=== PATIENT | female | born 1970 | race American Indian/Alaskan Native ===

== ENCOUNTER 2021-10-01 21:53 | Emergency (ER) | payer MEDICAID, OTHER ==
[2021-10-01 22:12] VITALS: BP 141/77; PULSE 103
[2021-10-01] MEDS ORDERED: Famotidine 20 MG/2 ML SDV IVPUSH ONE (22:18)
[2021-10-01] MEDS ORDERED: diphenhydrAMINE 50 MG/ML SDV IVPUSH ONE (22:18)
[2021-10-01] MEDS ORDERED: methylPREDNISolone Sodium Succinate 125 MG/2 ML SDV IVPUSH ONE (22:18)
[2021-10-01] MEDS ORDERED: Sodium Chloride 0.9% 10 ML Syringe FLUSH PRN (22:18)
[2021-10-01] MEDS ORDERED: Sodium Chloride 0.9% 1,000 ML IV ONE (22:19)
== END 2021-10-01 23:39 | disposition home or self-care (01) ==
LOC: DL.ED 21:53
DX: T78.40XA Allergy, unspecified, initial encounter (principal); K21.9 Gastro-esophageal reflux disease without esophagitis; I10 Essential (primary) hypertension; Z79.899 Other long term (current) drug therapy; Z90.710 Acquired absence of both cervix and uterus
CPT/HCPCS: 96361; 96374; 96375; 99283; J1200; J2930; J3490; J7030

== ENCOUNTER 2022-12-07 12:00 | Inpatient (IN) | payer MEDICAID ==
[2022-12-07] MEDS ORDERED: Lidocaine 2% with EPINEPHrine 1:200,000 20 ML SDV INJECT ONE (12:12)
[2022-12-07] MEDS ORDERED: HYDROmorphone 1 MG/ML Syringe IVPUSH ONE ×2 (12:20→14:28)
[2022-12-07] MEDS ORDERED: Ondansetron 4 MG/2 ML SDV IVPUSH ONE (12:20)
[2022-12-07 12:23] LABS: BASOPHILS PERCENT AUTO 0.4 % (0.0-1.0); EOSINOPHILS PERCENT AUTO 1.6 % (1.0-3.0); HEMATOCRIT 45.1 % (37.0-47.0); HEMOGLOBIN 15.4 g/dL (12.0-16.0); LYMPHOCYTES PERCENT AUTO 9.7 % (20.5-50.1); MEAN CORPUSCULAR HEMOGLOBIN 30.7 pg (27.0-34.0); MEAN CORPUSCULAR HGB CONC 34.1 g/dL (33.0-35.0); MEAN CORPUSCULAR VOLUME 89.8 fL (80-100); NEUTROPHILS PERCENT AUTO 82.3 % (42.2-75.2); PLATELET COUNT,PLT 380 10^3/uL (150-450); RED BLOOD CELL COUNT 5.02 10^6/uL (4.2-5.4); WHITE BLOOD CELL COUNT,WBC 19.6 10^3/uL (5.0-10.0)
[2022-12-07 12:35] LABS: HCG QUALITATIVE,SERUM NEGATIVE (NEGATIVE)
[2022-12-07 12:40] LABS: LACTIC ACID 0.8 mmol/L (0.4-2.0)
[2022-12-07 12:46] LABS: A/G RATIO 0.8; ALANINE AMINOTRANSFERASE,ALT 23 U/L (14-59); ALBUMIN 4.1 g/dL (3.4-5.0); ALKALINE PHOSPHATASE 114 U/L (46-116); ANION GAP 14.8 mEq/L (7-13); ASPARTATE AMNIOTRANSFERASE,AST 12 U/L (15-37); BILIRUBIN TOTAL 0.7 mg/dL (0.2-1.0); BLOOD UREA NITROGEN,BUN 11 mg/dL (7-18); BUN/CREATININE RATIO 11.8 (No establ ref range); C-REACTIVE PROTEIN 11.31 ng/dL (<=0.30); CALCIUM 9.4 mg/dL (8.5-10.1); CARBON DIOXIDE,CO2 27 mmol/L (21-32); CHLORIDE,CL 100 mmol/L (98-107); CREATININE 0.93 mg/dL (0.55-1.02); EST CRCL DRUG DOSING (CG) 69.59 mL/min; ESTIMATED GFR 74 mL/min (>=60); GLUCOSE RANDOM 118 mg/dL (70-99); POTASSIUM,K 3.8 mmol/L (3.5-5.1); PROTEIN TOTAL,TP 9.2 g/dL (6.4-8.2); SODIUM,NA 138 mmol/L (136-145)
[2022-12-07] MEDS ORDERED: Vancomycin 2 GM in Sodium Chloride 0.9% 500 ML IV ONE (12:54)
[2022-12-07] MEDS ORDERED: diphenhydrAMINE 50 MG/ML SDV IVPUSH ONE (14:45)
[2022-12-07] MEDS ORDERED: Zolpidem 5 MG Tab PO PRN (15:15)
[2022-12-07] MEDS ORDERED: Albuterol/Ipratropium 3.0-0.5 MG/3 ML Neb Soln NEB PRN (15:15)
[2022-12-07] MEDS ORDERED: Ibuprofen 600 MG Tab PO PRN (15:15)
[2022-12-07] MEDS ORDERED: 50% Dextrose in Water 50 ML Syringe IVPUSH PRN (15:24)
[2022-12-07] MEDS ORDERED: Glucagon,Human Recombinant 1 MG Vial IM PRN (15:24)
[2022-12-07] MEDS: Insulin Lispro 100 Units/ML 3 ML Vial SUBCUT SCH (17:09)
[2022-12-07] MEDS ORDERED: Formoterol/Mometasone 200-5 MCG 8.8 GM Inhaler IH SCH (21:00)
[2022-12-07] MEDS: oxyCODONE ER 10 MG TAB.ER PO SCH (21:11)
[2022-12-07] MEDS: Saccharomyces Boulardii (Probiotic) 250 MG Cap PO SCH (21:12)
[2022-12-07] MEDS: Ondansetron 4 MG/2 ML SDV IVPUSH PRN (21:24)
[2022-12-08] MEDS: Sodium Chloride 0.9% 10 ML Syringe FLUSH PRN ×2 (01:21→03:55)
[2022-12-08] MEDS: HYDROmorphone 0.5 MG/0.5 ML Syringe IVPUSH PRN (01:44)
[2022-12-08] MEDS: Ondansetron 4 MG/2 ML SDV IVPUSH PRN (03:55)
[2022-12-08] MEDS: Acetaminophen/HYDROcodone 325-10 MG Tab PO PRN (04:08)
[2022-12-08 06:54] LABS: ALBUMIN 3.2 g/dL (3.4-5.0); BILIRUBIN TOTAL 0.6 mg/dL (0.2-1.0); BUN/CREATININE RATIO 13.2 (No establ ref range); C-REACTIVE PROTEIN 12.61 ng/dL (<=0.30); CALCIUM 8.7 mg/dL (8.5-10.1); CREATININE 0.91 mg/dL (0.55-1.02); EST CRCL DRUG DOSING (CG) 72.45 mL/min; MAGNESIUM 1.9 mg/dL (1.8-2.4); PROTEIN TOTAL,TP 7.6 g/dL (6.4-8.2)
[2022-12-08 06:56] LABS: BASOPHILS PERCENT AUTO 0.2 % (0.0-1.0); EOSINOPHILS PERCENT AUTO 2.5 % (1.0-3.0); HEMATOCRIT 41.1 % (37.0-47.0); HEMOGLOBIN 13.6 g/dL (12.0-16.0); LYMPHOCYTES PERCENT AUTO 9.4 % (20.5-50.1); MEAN CORPUSCULAR HEMOGLOBIN 30.4 pg (27.0-34.0); MEAN CORPUSCULAR HGB CONC 33.1 g/dL (33.0-35.0); MEAN CORPUSCULAR VOLUME 91.7 fL (80-100); NEUTROPHILS PERCENT AUTO 81.9 % (42.2-75.2); PLATELET COUNT,PLT 336 10^3/uL (150-450); RED BLOOD CELL COUNT 4.48 10^6/uL (4.2-5.4)
[2022-12-08 06:57] LABS: A/G RATIO 0.73
[2022-12-08] MEDS: Saccharomyces Boulardii (Probiotic) 250 MG Cap PO SCH ×2 (08:50→20:55)
[2022-12-08] MEDS: oxyCODONE ER 10 MG TAB.ER PO SCH ×3 (08:51→23:39)
[2022-12-08] MEDS ORDERED: Omeprazole 20 MG Cap.CR PO SCH (09:00)
[2022-12-08] MEDS: Metoclopramide 10 MG/2 ML SDV IVPUSH PRN ×2 (09:02→20:57)
[2022-12-08] MEDS: Insulin Lispro 100 Units/ML 3 ML Vial SUBCUT SCH ×3 (10:34→17:14)
[2022-12-08] MEDS ORDERED: Flumazenil 0.1 MG/ML 5 ML MDV IVPUSH PRN (13:05)
[2022-12-08] MEDS ORDERED: Scopolamine 1.5 MG Transdermal Patch TRDERM PRN (13:05)
[2022-12-08] MEDS ORDERED: LORazepam 2 MG/ML SDV IVPUSH ONE ×3 (13:05→16:45)
[2022-12-08] MEDS ORDERED: Promethazine 25 MG/ML SDV IM PRN (13:06)
[2022-12-08] MEDS: Dextrose 5%-0.9% NaCl 1,000 ML IV SCH (18:49)
[2022-12-09 06:26] LABS: BASOPHILS PERCENT AUTO 0.4 % (0.0-1.0); EOSINOPHILS PERCENT AUTO 4.3 % (1.0-3.0); HEMATOCRIT 41.9 % (37.0-47.0); LYMPHOCYTES PERCENT AUTO 17.9 % (20.5-50.1); MEAN CORPUSCULAR HEMOGLOBIN 30.2 pg (27.0-34.0); MEAN CORPUSCULAR HGB CONC 33.4 g/dL (33.0-35.0); MEAN CORPUSCULAR VOLUME 90.5 fL (80-100); MONOCYTES PERCENT AUTO 8.3 % (2-8); NEUTROPHILS PERCENT AUTO 69.1 % (42.2-75.2); PLATELET COUNT,PLT 368 10^3/uL (150-450); RED BLOOD CELL COUNT 4.63 10^6/uL (4.2-5.4); WHITE BLOOD CELL COUNT,WBC 11.4 10^3/uL (5.0-10.0)
[2022-12-09] MEDS: Metoclopramide 10 MG/2 ML SDV IVPUSH PRN (06:34)
[2022-12-09] MEDS: HYDROmorphone 0.5 MG/0.5 ML Syringe IVPUSH PRN (06:39)
[2022-12-09 06:56] LABS: ALBUMIN 3.3 g/dL (3.4-5.0); ANION GAP 13.6 mEq/L (7-13); BILIRUBIN TOTAL 0.4 mg/dL (0.2-1.0); C-REACTIVE PROTEIN 9.21 ng/dL (<=0.30); CALCIUM 8.7 mg/dL (8.5-10.1); CREATININE 0.92 mg/dL (0.55-1.02); EST CRCL DRUG DOSING (CG) 71.66 mL/min; MAGNESIUM 1.9 mg/dL (1.8-2.4); POTASSIUM,K 3.6 mmol/L (3.5-5.1)
[2022-12-09 06:59] LABS: A/G RATIO 0.7
[2022-12-09] MEDS: Pantoprazole 40 MG Tab.CR PO SCH (10:05)
[2022-12-09] MEDS: Magnesium Hydroxide 400 MG/5 ML Susp 30 ML Cup PO PRN (10:05)
[2022-12-09] MEDS: Polyethylene Glycol 3350 Powder 17 GM Packet PO PRN (10:06)
[2022-12-09] MEDS: Insulin Lispro 100 Units/ML 3 ML Vial SUBCUT SCH ×3 (10:15→16:55)
[2022-12-09] MEDS: oxyCODONE ER 10 MG TAB.ER PO SCH (10:16)
[2022-12-09] MEDS ORDERED: Iopamidol 755 Mg/ML 100 ML Bottle IVPUSH ONE (11:00)
[2022-12-09] MEDS: Dextrose 5%-0.9% NaCl 1,000 ML IV SCH (11:06)
[2022-12-09] MEDS: Saccharomyces Boulardii (Probiotic) 250 MG Cap PO SCH ×2 (11:08→20:51)
[2022-12-09 17:42] LABS: AMYLASE 29 U/L (25-115); CHOLESTEROL HDL 29 mg/dL (40-59); CHOLESTEROL LDL CALCULATED 122 mg/dL (0-100); CHOLESTEROL TOTAL 176 mg/dL (0-199); LIPASE 40 U/L (16-77); TRIGLYCERIDES 126 mg/dL (0-149)
[2022-12-09] MEDS: Sennosides/Docusate Sodium 50-8.6 MG Tab PO PRN (20:51)
[2022-12-10] MEDS: Dextrose 5%-0.9% NaCl 1,000 ML IV SCH (00:28)
[2022-12-10 06:37] LABS: BASOPHILS PERCENT AUTO 0.4 % (0.0-1.0); EOSINOPHILS PERCENT AUTO 5.7 % (1.0-3.0); HEMATOCRIT 38.8 % (37.0-47.0); HEMOGLOBIN 13.2 g/dL (12.0-16.0); LYMPHOCYTES PERCENT AUTO 20.9 % (20.5-50.1); MEAN CORPUSCULAR HEMOGLOBIN 30.8 pg (27.0-34.0); MEAN CORPUSCULAR VOLUME 90.4 fL (80-100); MONOCYTES PERCENT AUTO 7.2 % (2-8); NEUTROPHILS PERCENT AUTO 65.8 % (42.2-75.2); PLATELET COUNT,PLT 354 10^3/uL (150-450); RED BLOOD CELL COUNT 4.29 10^6/uL (4.2-5.4); WHITE BLOOD CELL COUNT,WBC 7.7 10^3/uL (5.0-10.0)
[2022-12-10 06:59] LABS: ANION GAP 12.5 mEq/L (7-13); BILIRUBIN TOTAL 0.3 mg/dL (0.2-1.0); BUN/CREATININE RATIO 11.4 (No establ ref range); C-REACTIVE PROTEIN 3.54 ng/dL (<=0.30); CALCIUM 8.5 mg/dL (8.5-10.1); CREATININE 0.79 mg/dL (0.55-1.02); EST CRCL DRUG DOSING (CG) 83.46 mL/min; MAGNESIUM 2.1 mg/dL (1.8-2.4); POTASSIUM,K 3.5 mmol/L (3.5-5.1); PROTEIN TOTAL,TP 7.3 g/dL (6.4-8.2)
[2022-12-10 07:01] LABS: A/G RATIO 0.7
[2022-12-10] MEDS ORDERED: diphenhydrAMINE 12.5 MG/5 ML Liquid 5 ML UD Cup PO PRN (07:25)
[2022-12-10] MEDS: Pantoprazole 40 MG Tab.CR PO SCH (08:38)
[2022-12-10] MEDS: Insulin Lispro 100 Units/ML 3 ML Vial SUBCUT SCH ×3 (08:38→17:44)
[2022-12-10] MEDS: Saccharomyces Boulardii (Probiotic) 250 MG Cap PO SCH ×2 (08:38→20:05)
[2022-12-11 06:23] LABS: BASOPHILS PERCENT AUTO 0.5 % (0.0-1.0); EOSINOPHILS PERCENT AUTO 5.6 % (1.0-3.0); HEMATOCRIT 41.3 % (37.0-47.0); HEMOGLOBIN 14.1 g/dL (12.0-16.0); LYMPHOCYTES PERCENT AUTO 25.5 % (20.5-50.1); MEAN CORPUSCULAR HEMOGLOBIN 30.5 pg (27.0-34.0); MEAN CORPUSCULAR HGB CONC 34.1 g/dL (33.0-35.0); MEAN CORPUSCULAR VOLUME 89.4 fL (80-100); NEUTROPHILS PERCENT AUTO 62.4 % (42.2-75.2); PLATELET COUNT,PLT 379 10^3/uL (150-450); RED BLOOD CELL COUNT 4.62 10^6/uL (4.2-5.4); WHITE BLOOD CELL COUNT,WBC 8.2 10^3/uL (5.0-10.0)
[2022-12-11 06:46] LABS: A/G RATIO 0.8; ALBUMIN 3.4 g/dL (3.4-5.0); ANION GAP 12.7 mEq/L (7-13); BILIRUBIN TOTAL 0.4 mg/dL (0.2-1.0); BUN/CREATININE RATIO 9.4 (No establ ref range); C-REACTIVE PROTEIN 1.81 ng/dL (<=0.30); CALCIUM 9.1 mg/dL (8.5-10.1); CREATININE 0.85 mg/dL (0.55-1.02); EST CRCL DRUG DOSING (CG) 77.57 mL/min; MAGNESIUM 2.1 mg/dL (1.8-2.4); POTASSIUM,K 3.7 mmol/L (3.5-5.1); PROTEIN TOTAL,TP 7.9 g/dL (6.4-8.2)
[2022-12-11] MEDS: Sodium Chloride 0.9% 10 ML Syringe FLUSH PRN (09:56)
[2022-12-11] MEDS: Saccharomyces Boulardii (Probiotic) 250 MG Cap PO SCH ×2 (09:57→21:18)
[2022-12-11] MEDS: Pantoprazole 40 MG Tab.CR PO SCH (09:57)
[2022-12-11] MEDS: Insulin Lispro 100 Units/ML 3 ML Vial SUBCUT SCH ×3 (09:57→17:34)
[2022-12-11] MEDS ORDERED: fentaNYL 100 MCG/2 ML SDV IVPUSH ONE (12:15)
[2022-12-11] MEDS ORDERED: LORazepam 2 MG/ML SDV IVPUSH ONE (12:16)
[2022-12-11] MEDS ORDERED: Lidocaine 1% 30 ML SDV INJECT ONE (12:16)
[2022-12-11] MEDS: Magnesium Hydroxide 400 MG/5 ML Susp 30 ML Cup PO PRN (21:18)
[2022-12-11] MEDS: Acetaminophen/HYDROcodone 325-10 MG Tab PO PRN (21:18)
[2022-12-11] MEDS: Sennosides/Docusate Sodium 50-8.6 MG Tab PO PRN (21:18)
[2022-12-12 07:41] VITALS: PULSE 65
[2022-12-12] MEDS: Pantoprazole 40 MG Tab.CR PO SCH (09:42)
[2022-12-12] MEDS: Saccharomyces Boulardii (Probiotic) 250 MG Cap PO SCH (09:42)
[2022-12-12] MEDS: Metoclopramide 10 MG/2 ML SDV IVPUSH PRN (09:43)
[2022-12-12] MEDS: Polyethylene Glycol 3350 Powder 17 GM Packet PO PRN (09:43)
[2022-12-12] MEDS: Insulin Lispro 100 Units/ML 3 ML Vial SUBCUT SCH ×2 (09:46→13:20)
[2022-12-12] MEDS ORDERED: Benzocaine/Docusate Sodium 20-283 MG/5 ML Enema RECTAL ONE (09:49)
[2022-12-12 11:53] VITALS: BP 139/88
== END 2022-12-12 15:55 | disposition home or self-care (01) | DRG 579 ==
LOC: DL.ED 12:00 → DL.MS 14:16 → OBSVTOIN 14:35
PROVIDERS: ADMIT Internal Medicine; ATTEND Internal Medicine
PROC: 0J9M3ZZ Drainage of Left Upper Leg Subcutaneous Tissue and Fascia, Percutaneous Approach (ICD-10-PCS; 2022-12-07)
PROC: 0JDM0ZZ Extraction of Left Upper Leg Subcutaneous Tissue and Fascia, Open Approach (ICD-10-PCS; principal; 2022-12-11)
DX: L02.416 Cutaneous abscess of left lower limb (principal); K85.90 Acute pancreatitis without necrosis or infection, unspecified; Z68.41 Body mass index [BMI] 40.0-44.9, adult; I10 Essential (primary) hypertension; K21.9 Gastro-esophageal reflux disease without esophagitis; D72.829 Elevated white blood cell count, unspecified; R79.82 Elevated C-reactive protein (CRP); E66.01 Morbid (severe) obesity due to excess calories; E11.65 Type 2 diabetes mellitus with hyperglycemia; E88.09 Other disorders of plasma-protein metabolism, not elsewhere classified; B95.62 Methicillin resistant Staphylococcus aureus infection as the cause of diseases classified elsewhere; K57.30 Diverticulosis of large intestine without perforation or abscess without bleeding; N83.8 Other noninflammatory disorders of ovary, fallopian tube and broad ligament; M43.17 Spondylolisthesis, lumbosacral region; M51.87 Other intervertebral disc disorders, lumbosacral region; K42.9 Umbilical hernia without obstruction or gangrene; L98.9 Disorder of the skin and subcutaneous tissue, unspecified; K76.0 Fatty (change of) liver, not elsewhere classified; R16.0 Hepatomegaly, not elsewhere classified; T50.995A Adverse effect of other drugs, medicaments and biological substances, initial encounter; R11.2 Nausea with vomiting, unspecified; Z88.1 Allergy status to other antibiotic agents; Z79.899 Other long term (current) drug therapy; Z90.710 Acquired absence of both cervix and uterus; Z79.84 Long term (current) use of oral hypoglycemic drugs
CPT/HCPCS: 10060; 36415; 74176; 76705; 80053; 80061; 80202; 82150; 82947; 83605; 83690; 83735; 84703; 85025; 86140; 87040; 87070; 87077; 87186; 96365; 96366; 96372; 96375; 96376; 99222; 99232; 99239; 99284; 99284-25; A9270-GY; G0378; J1170; J1200; J2060; J2405; J2550; J2765; J3010; J3370; J3490; J7040; J7042; J7050

== ENCOUNTER 2023-01-10 01:58 | Emergency (ER) | payer MEDICAID ==
[2023-01-10 02:24] VITALS: BP 141/117; PULSE 96
== END 2023-01-10 03:04 | disposition home or self-care (01) ==
LOC: DL.ED 01:58
DX: U07.1 COVID-19 (principal); I10 Essential (primary) hypertension; K21.9 Gastro-esophageal reflux disease without esophagitis; E11.9 Type 2 diabetes mellitus without complications; E66.9 Obesity, unspecified; Z88.1 Allergy status to other antibiotic agents; Z91.041 Radiographic dye allergy status; Z79.899 Other long term (current) drug therapy
CPT/HCPCS: 99283; 99284; U0002

== ENCOUNTER 2023-10-06 03:01 | Emergency (ER) | payer MEDICAID ==
[2023-10-06] MEDS: Albuterol/Ipratropium 3.0-0.5 MG/3 ML Neb Soln NEB ONE (03:20)
[2023-10-06 03:25] LABS: BASOPHILS PERCENT AUTO 0.6 % (0.0-1.0); EOSINOPHILS PERCENT AUTO 0.3 % (1.0-3.0); HEMATOCRIT 41.1 % (37.0-47.0); HEMOGLOBIN 13.8 g/dL (12.0-16.0); LYMPHOCYTES PERCENT AUTO 24.4 % (20.5-50.1); MEAN CORPUSCULAR HEMOGLOBIN 30.8 pg (27.0-34.0); MEAN CORPUSCULAR HGB CONC 33.6 g/dL (33.0-35.0); MEAN CORPUSCULAR VOLUME 91.7 fL (80-100); MONOCYTES PERCENT AUTO 5.5 % (2-8); NEUTROPHILS PERCENT AUTO 69.2 % (42.2-75.2); PLATELET COUNT,PLT 337 10^3/uL (150-450); RED BLOOD CELL COUNT 4.48 10^6/uL (4.2-5.4); WHITE BLOOD CELL COUNT,WBC 12.3 10^3/uL (5.0-10.0)
[2023-10-06] MEDS: GI Cocktail Oral Solution 30 ML PO ONE (03:37)
[2023-10-06 03:50] LABS: A/G RATIO 1.1; ALBUMIN 4.1 g/dL (3.4-5.0); ANION GAP 17.3 mEq/L (7-13); BILIRUBIN TOTAL 0.4 mg/dL (0.2-1.0); BUN/CREATININE RATIO 13.1 (No establ ref range); CALCIUM 9.1 mg/dL (8.5-10.1); CREATININE 0.99 mg/dL (0.55-1.02); EST CRCL DRUG DOSING (CG) 65.85 mL/min; POTASSIUM,K 3.3 mmol/L (3.5-5.1); PROTEIN TOTAL,TP 7.8 g/dL (6.4-8.2)
[2023-10-06 04:16] VITALS: BP 136/89; PULSE 76
== END 2023-10-06 04:15 | disposition home or self-care (01) ==
LOC: DL.ED 03:01
DX: R07.81 Pleurodynia (principal); J18.9 Pneumonia, unspecified organism; R07.89 Other chest pain; I10 Essential (primary) hypertension; K21.9 Gastro-esophageal reflux disease without esophagitis; E11.9 Type 2 diabetes mellitus without complications; E66.9 Obesity, unspecified; Z79.899 Other long term (current) drug therapy; Z88.1 Allergy status to other antibiotic agents; Z91.041 Radiographic dye allergy status
CPT/HCPCS: 36415; 71045; 80053; 84484; 85025; 85379; 94640; 99284; 99285; A9270-GY; J7620-GY